=== PATIENT | male | born 1945 | race Caucasian/White ===

== ENCOUNTER 2016-11-25 10:26 | Inpatient (IN) | payer MEDICARE ==
[~2016-11-25] VITALS: Ht 177.8 cm; Wt 127.0 kg
--- NOTE | ~2016-11-25 | CO ---
Unit #: [id number] #: [id number] Patient: MARCO ANTONIO GARCIA JR [id number] [facility] [address] [place] [address]. [place], [place] [address] [id number] I MR#: [id number] NAME: MARCO ANTONIO GARCIA ROOM: 473 Age: 71 Sex: M Admission Date: 11/25/2016 : 1945 Attending Physician: Kevin Peng M.D. Primary Care Physician: Vance Muniz Consultation Date: 12/05/2016 CONSULTATION REPORT REASON FOR CONSULTATION Depression, anxiety, trouble sleeping. HISTORY OF PRESENT ILLNESS Mr. Odell is a 71-year-old morbidly obese, white male, seen in room 473, bed 1 on 12/05/2016 at [facility]. The patient was sitting somewhat uncomfortably in chair, dressed casually, has a bandage on his right leg. The patient reported that he is frustrated as having difficulty with day-to-day function such as transfer, taking care of himself. The patient reports that he takes medication for depression and for sleep and anxiety. The patient reported feeling sad, depressed, lately. Denied any suicidal or homicidal ideation. Denied any psychotic symptom. The patient reports lives at home with his . Marco Antonio's vital signs are stable; temperature 98.5, heart rate 73, respiratory rate 18, blood pressure 132/54, and oxygen saturation 95%. PAST PSYCHIATRIC HISTORY Remarkable for history of depression and anxiety. The patient is currently on medication. No history of any suicide attempt or any inpatient treatment. MEDICAL HISTORY History of osteoarthritis of knee, bradycardia, hypertension, diabetes, complete heart block, chronic obstructive pulmonary disease, history of decubitus ulcer on right leg. MEDICATIONS The patient is currently on Cardizem CD, furosemide, Wellbutrin 100 mg b.i.d., Desyrel 50 mg q.h.s. p.r.n. for sleep, Zestril, Lotrimin cream, Dulera, [place] spray, hydrocortisone cream, MiraLax, Colace, Levaquin, Percocet, Amaryl, Combivent, Dilaudid injection, diphenhydramine, Protonix, , Ativan p.r.n. FAMILY HISTORY AND SOCIAL HISTORY The patient reports he lives at home with his , good support system. No history of abuse. No history of any substance abuse. REVIEW OF SYSTEMS Complete review of systems is remarkable for as mentioned above. MENTAL STATUS EXAMINATION Vital signs, please see above. General appearance; the patient moderately obese, dressed casually, sitting somewhat uncomfortably in chair, seems to be in pain. Attention span and concentration, poor. Speech, regular rate Unit #: [id number] #: [id number] Patient: RADHA RILEY,MARCO ANTONIO RENDON and coherent. Oriented in time, place, and person. Mood and affect were sad, dysphoric, labile. Thought process, coherent. Thought content, the patient denied any thoughts of harming self or others, but sad, depressed. Denied any hallucination. Recent and remote memory, fair. Language, intact. Fund of knowledge, fair. Insight and judgment, fair to slightly impaired. DIAGNOSES Psychiatric: Major depressive disorder, recurrent, severe, F33.2; anxiety disorder, not otherwise specified, F40.01. Secondary diagnosis: Deferred. Medical diagnosis: Please refer to H and P. Stressors: Psychosocial stressors. ASSESSMENT/PLAN 1. Supportive psychotherapy and psychoeducation provided to the patient. 2. Educated about benefits and side effects of medication and course and prognosis of illness. 3. Advised to continue with p.r.n. Ativan and trazodone. I advised to change Wellbutrin to 100 mg in the morning and 100 mg in the afternoon, advised Celexa 20 mg daily for depressive symptom. If needed, consider further adjustment of medication. Please feel free to call if any questions, telephone #[phone]. Dictated by... Kip Rodriguez M.D. ARMIDA/ambrose TD: 12/05/2016 23:56 JOB #: [id number] CONSULTATION REPORT Page 1 of 1 X Kip Rodriguez MD X CONSULTATION REPORT
--- NOTE | ~2016-11-25 | CO ---
Unit #: [id number] #: [id number] Patient: MARCO ANTONIO GARCIA JR [id number] [address] [place], [place] [address] [id number] I MR#: [id number] NAME: MARCO ANTONIO GARCIA ROOM: [facility] Age: 71 Sex: M Admission Date: 11/25/2016 : 1945 Attending Physician: Kevin Peng M.D. Primary Care Physician: Vance Muniz Consultation Date: 12/03/2016 CONSULTATION REPORT REASON FOR CONSULTATION Renal insufficiency. Thank you very much for asking me to see this patient in consultation HISTORY OF PRESENT ILLNESS Mr. Garcia is a 71-year-old male, who presented to the hospital here on 11/25/2016 for right foot infection, status post debridement at that time. He subsequently underwent resurgery yesterday for second debridement again. The patient was noted upon admission to have a creatinine of 1.3, it went down to 1.1, and up to 1.7 yesterday. At which time, we were consulted, although it was not called in and it looks like it was called in and taken off earlier this morning. The patient's creatinine was down to 1.4 today. He states he has not really seen a kidney doctor as an outpatient. I did see him back in 2010, where he had acute renal failure, but his creatinine improved down to 1.0, at that time, it was related to ATN. His creatinine over the last 4 years to 5 years has ranged between anywhere from 1.1 to 1.2 from 2011 to 2013, and of course, 1.3 upon admission. He states he has some chronic shortness of breath over the last 2 months, occasional swelling. He also takes Aleve at home about at least one a day. Along with his other medications, he says he has had intermittently has some increased swelling of his right foot for a while. He denies any chest pain, any nausea or vomiting, any urinary symptoms. PAST MEDICAL HISTORY History of diabetes mellitus, history of hypertension, history of peripheral vascular disease, he actually had a bone removed secondary to osteo in 2010 of his right I think lateral part of his foot, he has a history of panic disorder, history of anemia with an upper GI bleed in the past in 2010, history of obesity, history of atrial fib on Eliquis, history of bradycardia and status post pacemaker, history of questionable COPD, questionable obstructive sleep apnea. ALLERGIES Include penicillin. SOCIAL HISTORY He drinks about two 16 ounce beers a day and a shot of other alcohol a day he states. He is a previous smoker, none in many years. MEDICATIONS Zestril here started today 10 mg a day, hydrocodone, Colace, Levaquin, Amaryl, Protonix, vancomycin, as well as Wellbutrin. His medicines at Unit #: [id number] #: [id number] Patient: MARCO ANTONIO GARCIA JR home included Lasix 40 mg b.i.d., Amaryl, Eliquis, lorazepam, Wellbutrin, Zestoretic, and Aleve daily most of the time. REVIEW OF SYSTEMS He denies any severe headaches, visual problems, or sinus problems. No cough or hemoptysis. No neck pain or neck stiffness. No chest pain, chest heaviness, or palpitations. Again, no severe abdominal pain, nausea, vomiting, or diarrhea. Rest of his review of systems as mentioned in the HPI. PHYSICAL EXAMINATION VITAL SIGNS: His T-max is 99.3, pulse 69 to 74, blood pressure is 128 to 152 over 40s to 70s. HEENT: He is normocephalic and atraumatic. Pupils are equal, round, and reactive to light. Extraocular muscles are intact. Hearing appears to be normal. Mouth is clear. No erythema. No exudate. NECK: Supple. No JVD. CARDIAC: He appears to have a regular rhythm without a rub. No S3 or S4 currently. LUNGS: His lung sounds fairly clear bilaterally. No wheezes, rhonchi, or rales. ABDOMEN: Overweight, bowel sounds positive, nontender, soft. EXTREMITIES: He does have bilateral lower extremity swelling mild as well as some mild thigh edema. His right foot is dressed. NEURO: He appears to be intact motor and sensory grossly. : Deferred. DIAGNOSTIC STUDIES LABORATORY RESULTS: Today shows sodium of 137, potassium 4.4, chloride is 107, bicarb is 23, BUN and creatinine 41 and 1.4. Glucose 253. Calcium is 8.1, albumin is 2.7. His previous creatinine is as mentioned above. His hemoglobin is 8.3 and has required several transfusions here, his white count 7300, platelets 316,000. His UA upon admission showed specific gravity of 1.01, trace protein, no rbc's, no wbc's. ASSESSMENT AND PLAN 1. Acute on probably mild chronic kidney disease, stage 3. His urine was fairly benign except for some trace protein. We will go ahead and do a random protein to creatinine ratio. We will check serum protein immunofixation. We will also check renal ultrasound to rule out obstruction or other gross abnormalities. He was intermittently on Aleve too and recommend stopping that and staying away from nonsteroidals for now. He was also just started on an LES inhibitor again here, we will see where his kidney function goes. He was also apparently given intermittent vancomycin. Certainly if it is continued and his renal functions worsen again, then we may need to consider change that to a different agent. Also, I do not see that he has had any contrast dye or any contrast dye ordered, but certainly if needed we would recommend mild hydration and other high-dose HMG CoA-reductase inhibitors, holding his Zestril, etc. He is also on some IV fluids right now and he has some mild increase edema, we will stop that as well, but hold diuretics. We will follow. 2. Right foot infection, status post debridement x2. 3. Hypertension. Again, the patient was started on LES inhibitor again today. We will follow him. He does have a history of hyperkalemia in the past, but it sounds like when he was . 4. Diabetes mellitus with increased glucose. 5. Questionable obstructive sleep apnea. 6. Anemia. He is on a proton pump inhibitor which is associated with Unit #: [id number] #: [id number] Patient: RADHA MARCO ANTONIO RILEY possible renal insufficiency and some poorly noncontrolled studies retrospective analysis. Although, ideally I recommend staying off PPIs until further studies have been done but since he has had a history of gastrointestinal bleed in the past and he has decreasing intermittently hemoglobin now, we will keep him on his PPI for now. Dictated byJuana Noel M.D. KAN/ambrose TD: 12/04/2016 04:40 JOB #: [id number] CONSULTATION REPORT Page 1 of 1 X Alli Noel MD CONSULTATION REPORT
--- NOTE | ~2016-11-25 | A ---
[facility] Nutrition Therapy DATE: 11/26/16 Patient: MARCO ANTONIO GARCIA JR Physician: NEELAM Address: [facility] Room/Bed: [address] [place] [address], Zip: [place] [address] Admit Date: 11/25/16 Date of : 43 Height: 5 10 Weight: 280 [phone] NUTRITIONAL ASSESSMENT: REASON: High BMI and Consult re: DM diet education 71 y/o male admitted for ulcer PMH: DM, HTN, Afib, COPD Anthropometrics: ht: 5'10" wt: 280# (127 kg) BMI: 40 Labs: Na+ 134, Glu 133, Accuchecks 145-228, BUN 30, Ca++ 8.3, Alb 3.0, HgbA1c 7.7 Meds: protonix, novolog, NaCl, furosemide Skin Integrity: Ulcer RT leg Diet: Consistent Carbohydrate Assessment: Chart reviewed, events noted. Pt seen for consult re: DM diet education. RD international tax manager visited pt at bedside. Pt reports eating "whatever he wants" at home and having a fixed income, not being able to spend a lot of money on food. RD international tax manager provided written and verbal education on carbohydrate counting and provided examples of healthy foods for heart health and weight loss. Pt had no questions at this time. RD will remain available. Intervention: 1. Diet education 2. Consistent carbohydrate diet Recommendations: 1. Add healthy heart diet to current consistent carbohydrate diet to promote gradual weight loss towards a healthy BMI. 2. Compliance with consistent carbohydrate and healthy heart diet upon d/c. 3. Patient would benefit from following up with and outpatient dietitian for assistance with diabetes management and weight loss. Respectfully, SOCRATES MOORE, cis[employer] certified internetwork expert Roslyn Ashraf MS, RD, LD [facility] Nutrition Therapy DATE: 11/26/16 Patient: MARCO ANTONIO GARCIA JR Physician: NEELAM Address: [address] [place] [address] Room/Bed: [address] [place] [address], Zip: [place] [address] Admit Date: 11/25/16 Date of : [birth year] Height: 5 10 Weight: 280 [phone] Food and Nutritional Services [facility] cc: client file
--- NOTE | ~2016-11-25 | US77 ---
[facility] A Service of [facility] & [facility] RADIOLOGY TEXT RESULTS PATIENT: MARCO ANTONIO GARCIA JR LOCATION: [facility] 473-01 : 43 UNIT #: [id number] AGE: [address]: Kevin Peng MD SEX: M ORDER DR: [id number] [facility] [address] [place], [place] [address] [id number] I MR#: [id number] Acc #: [id number] NAME: MARCO ANTONIO GARCIA : 1945 SEX: M STUDY DATE/TIME: 12/03/2016 22:22 UNIT: [facility] ROOM: [facility] STUDY DESCRIPTION: US Kidney Bilateral Complete Attending Physician: Kevin Peng M.D. Referring Physician: Kevin Peng M.D. Ordering Physician: Nelson Noel M.D. Primary Care Physician: Vance Mendez [facility] MEDICAL IMAGING REPORT This report is preliminary unless electronic signature is present EXAM Bilateral renal ultrasound, 12/03/2016. HISTORY 71-year-old male with elevated BUN and creatinine. Abnormal renal function exam. BUN 41, creatinine 1.4, GFR 49.5. COMPARISON None. FINDINGS Real time castellanos-scale and color Doppler imaging of the kidneys and urinary bladder was performed. Examination is slightly limited by body habitus. Both kidneys appear normal in size and contour. The right kidney measures 15.3 cm in length. The left kidney measures 11.7 cm in length. Cortical thickness and echogenicity are grossly preserved. There is a small simple-appearing cyst in the mid pole of the right kidney measuring 2.2 x 1.2 x 2 cm. No solid or cystic left renal masses. No solid right renal masses. No hydronephrosis in either kidney. No abnormal calcifications. Urinary bladder appears unremarkable. The prevoid bladder volume 160.5 cubic cm. IMPRESSION Small simple-appearing right renal cyst. Otherwise, unremarkable renal ultrasound. Dictated by... Deepak Verdugo M.D. THIS IS AN ELECTRONICALLY VERIFIED REPORT Deepak Verdugo M.D. at 12/04/2016 4:04 PM SEBASTIAN/ian [facility] A Service of [facility] & [facility] / [facility] RADIOLOGY TEXT RESULTS PATIENT: MARCO ANTONIO GARCIA JR LOCATION: [facility] 473-01 : [birth year] UNIT #: [id number] AGE: [address]: Kevin Peng MD SEX: M ORDER DR: TD: 12/04/2016 08:07 JOB #: [id number] MEDICAL IMAGING REPORT Page 1 of 1 COPY
--- NOTE | ~2016-11-25 | CO ---
Unit #: [id number] #: [id number] Patient: MARCO ANTONIO GARCIA JR [id number] [address] [place], [place] [address] [id number] MR#: [id number] NAME: MARCO ANTONIO GARCIA JR ROOM: [facility] Age: 71 Sex: M Admission Date: 11/25/2016 : 1945 Attending Physician: Kevin Peng M.D. Primary Care Physician: Vance Muniz Consultation Date: 11/25/2016 CONSULTATION REPORT REASON FOR CONSULTATION Medical management. HISTORY OF PRESENT ILLNESS The patient is a 71-year-old male, fairly poor historian, with a very flat affect who apparently was directly transferred from his surgeon's office secondary to need for debridement of a lower extremity venous stasis ulcer. We were asked to evaluate the patient in regard to his prior history of hypertension, pacemaker placement, anticoagulation, as well as diabetes history. He himself is a fairly poor historian. He is unable to tell me the name of his psych specialist. After a very long time, he was able to tell me the name of his family practitioner, and even then, he was not sure. He states he has been taking his regular medications as prescribed, and despite instructions from surgery, his wound ulcer has not been able to heal. He is not entirely sure he wants to proceed with surgery. He is afraid he might lose his lower extremity altogether. He currently has no family members present at bedside. He, otherwise, denies any other complaints. He denies any chest pain, shortness of breath, headaches. He states he, otherwise, feels well. PAST MEDICAL HISTORY 1. Severe morbid obesity. 2. Hypertension. 3. Pacemaker placement secondary to cardiac arrhythmia. Patient unable to tell me why. 4. Prior history of peptic ulcer disease. 5. Chronic constipation issues. 6. Diabetes type 2. 7. Prior history of glaucoma. 8. Cataract surgery. 9. Arthritis. HOME MEDICATIONS Lasix, Amaryl, Eliquis, Ativan, Wellbutrin, eyedrops, Zestoretic 20/12.5. ALLERGIES Penicillin. REVIEW OF SYSTEMS Please see HPI. Limited secondary to the patient's poor ability to verify details. Unit #: [id number] #: [id number] Patient: MARCO ANTONIO GARCIA JR FAMILY HISTORY Reviewed. Noncontributory. Not pertinent given advanced age. SOCIAL HISTORY The patient resides at home. No alcohol. No tobacco. No illicit drug use. He states in the past he used to drink a heavy amount of alcohol but currently he only does it socially. PHYSICAL EXAMINATION VITAL SIGNS: Temperature 98.1, pulse 70, respiratory rate 18, blood pressure 166/68. GENERAL APPEARANCE: The patient is a morbidly obese 71-year-old male lying comfortably, no acute distress. HEAD EXAM: Atraumatic, normocephalic. NECK: Supple. No accessory muscle use noted. CVS EXAM: S1, S2. Tachycardic. Pacemaker placement is noted on chest wall. RESPIRATORY EXAM: Diminished anterior auscultation bilaterally. GI/ABDOMEN: Distention noted. Nontender. LOWER EXTREMITY EXAM: Bilateral lower extremities are noted. Left is dressed. As well, the right appears to be in a compression stocking. There is no calf tenderness noted. NEUROLOGIC EXAM: The patient is alert and oriented x3 with no evidence of any focal nerve deficits. DIAGNOSTIC STUDIES LABS: Labs at time of admission include a CMP showing creatinine of 1.3, glucose 171. INR of 1. CBC shows a hemoglobin of 9. Blood glucose Accu-Cheks was 156. INITIAL IMPRESSION 1. Type 2 diabetes. 2. Severe morbid obesity. 3. Prior history of pacemaker placement. Details unclear. 4. Hypertension. 5. Prior history of peptic ulcer disease. 6. Osteoarthritis. 7. Likely restrictive lung disease secondary to morbid obesity. 8. Likely obstructive sleep apnea. 9. Venous stasis ulcer. 10. Generalized anxiety. 11. Likely underlying cognitive impairment. PLAN As per [facility]. Cardiology service will also be consulted secondary to the patient being on chronic anticoagulation. He likely needs at least 24 hours off of Eliquis. He has already taken a dose this morning. Cardiology will see and evaluate the patient later this afternoon. His other home medications will be reviewed. Accu-Cheks will be ascertained a.c. and h.s. NovoLog low dose sliding scale will be initiated. Routine laboratory studies to follow. Pulmonary consultation may be considered, as well, for preoperative management secondary to his severe morbid obesity. He likely is at moderate but acceptable risk for surgery from our standpoint, but he does require cardiology and likely pulmonary consultation prior to any form of general anesthesia. Unit #: [id number] #: [id number] Patient: MARCO ANTONIO GARCIA JR JUSTICE Dictated by... Sina Morataya/sylvia TD: 11/25/2016 14:48 JOB #: [id number] CONSULTATION REPORT Page 1 of 1 X Karla Meza MD X CONSULTATION REPORT
--- NOTE | ~2016-11-25 | EKG ---
PATIENT: MARCO ANTONIO GARCIA UNIT #: [id number] Ventricular Rate: 70 BPM Atrial Rate: 70 BPM QRS Duration: 196 ms Q-T Interval: 498 ms QTC Calculation(Bezet): 537 ms Calculated R Garrett: -108 degrees Calculated T Garrett: 57 degrees Diagnosis Line: AV sequential or dual chamber electronic pacemaker Diagnosis Line: Abnormal ECG Diagnosis Line: When compared with ECG of 26-NOV-2016 06:47, Diagnosis Line: Wide QRS rhythm has replaced Electronic Diagnosis Line: ventricular pacemaker Diagnosis Line: Confirmed by ALBINO LAI MD ([id number]) on 11/28/2016 Diagnosis Line: 5:42:39 PM INTERPRETING MD: MING MILES
--- NOTE | ~2016-11-25 | EKG ---
PATIENT: MARCO ANTONIO GARCIA UNIT #: [id number] Ventricular Rate: 70 BPM Atrial Rate: 70 BPM P-R Interval: 174 ms QRS Duration: 194 ms Q-T Interval: 488 ms QTC Calculation(Bezet): 527 ms P [place]: 78 degrees Calculated R [place]: -99 degrees Calculated T [place]: 72 degrees Diagnosis Line: AV sequential or dual chamber electronic pacemaker Diagnosis Line: When compared with ECG of 25-NOV-2016 13:00, Diagnosis Line: (unconfirmed) Diagnosis Line: Electronic ventricular pacemaker has replaced Diagnosis Line: Electronic atrial pacemaker Diagnosis Line: Confirmed by DEE DEE MATTHEWS MD ([id number]) on Diagnosis Line: 11/27/2016 10:34:41 AM INTERPRETING MD: BYRON MILES
--- NOTE | ~2016-11-25 | TOC ---
Unit #: [id number] #: [id number] Patient: MARCO ANTONIO GARCIA JR [id number] [address] [place], [place] [address] [id number] I MR#: [id number] NAME: MARCO ANTONIO GARCIA ROOM: [facility] Age: 71 Sex: M Admission Date: 11/25/2016 : 1945 Attending Physician: Kevin Peng M.D. Referring Physician: Kevin Peng M.D. Primary Care Physician: Vance Muniz TRANSFER OF CARE SUMMARY ADMITTING AND FINAL DIAGNOSIS Non-healing wound of the right lower leg. SECONDARY DIAGNOSES 1. Chronic anemia 2. Exogenous obesity 3. Chronic venous stasis disease BRIEF SUMMARY This is a 71-year-old white male that has been followed by Dr. Peng for a non-healing wound of the right lower leg which was felt to be related to his chronic venous stasis disease. The patient had had multiple attempts at debridements with no success and was brought in at this time for extensive debridement of his wound to try to get granulation enough to skin graft his wound. On 11/27/2016, the patient underwent initial debridement of his wound and this was followed up with another debridement five days later on the 02 of December. Postop the patient has done well except for having some psych issues and was seen in consultation by Dr. Rodriguez and now is doing better with a little less depression. His wound is clean with no further necrosis, but no significant granulation. Presently, he is having a Santyl put on the wound along with [id number] dressings. He did develop some edema of the left lower leg, which has improved with elevation. He has taken fairly significant amounts of IV pain medications while in the hospital. Plan will be to transfer him to the rehab SNU facility here at [facility] for further convalescence and follow up. His home medications will be continued and his pain medicine as well as local wound care. Dictated by... Pankaj Mckee Jr., M.D. NAN/laurent TD: 12/09/2016 16:04 JOB #: [id number] Unit #: [id number] #: [id number] Patient: MARCO ANTONIO GARCIA JR TRANSFER OF CARE SUMMARY Page 1 of 1 X aPnkaj Mckee MD X TRANSFER OF CARE SUMMARY
--- NOTE | ~2016-11-25 | HP ---
Unit #: [id number] #: [id number] Patient: MARCO ANTONIO GARCIA JR [id number] [address] [place], [place] [address] [id number] I MR#: [id number] NAME: MARCO ANTONIO GARCIA JR ROOM: [facility] Age: 71 Sex: M Admission Date: 11/25/2016 : 1945 Attending Physician: Kevin Peng M.D. Referring Physician: Kevin Peng M.D. Primary Care Physician: Vance Muniz HISTORY AND PHYSICAL HISTORY OF PRESENT ILLNESS Mr. Garcia is a 71-year-old white male with a past medical history of hypertension, morbid obesity, diabetes, atrial fibrillation and flutter, who is on Eliquis. He is noted to have enlarging right leg infected venous stasis ulcers with areas of necrosis. It is uncontrollable as an outpatient. He is admitted for cardiac and pulmonary clearance as well as diabetic evaluation. He is also admitted to have this debrided in the operating room in order to try to get control of this wound bed situation. He is also on anticoagulation which has to be reversed. PAST MEDICAL HISTORY See notes in chart. This would include notes from pulmonary and cardiology. His other medical illnesses include 1. Osteoarthritis of the knees. 2. Bradycardia. 3. Hypertension. 4. Diabetes. 5. Complete heart block. 6. Chronic obstructive pulmonary disease secondary to smoking. He is not smoking at present. 7. He is retired, disabled and a nondrinker. 8. The diagnosis on the chart of a decubitus ulcer of his right leg is not correct. The area over his right leg is a complicated large stasis ulcer secondary to on venous and insufficiency and lymphedema. ALLERGIES Penicillin. PHYSICAL EXAMINATION GENERAL: Cooperative, alert white male. He is in no acte distress. HEENT: Clear. There is no jaundice. Pupils equal and reactive to light and accommodation. CHEST: Relatively clear to auscultation and percussion. HEART: Heart rate is irregular, as documented per cardiology. ABDOMEN: Soft and nontender. No masses. No peritoneal signs. EXTREMITIES: Limited range of motion. The patient is in the bed at present. Right leg edema is noted, but control is slightly improved. The ulcer over the right leg, which is a stasis ulcer, is fairly large with areas of necrotic tissue. He does have 2+ palpable pulses. ASSESSMENT/PLAN This patient needs to have this debrided in the operating room. The risks have been explained to the patient and he understands. Unit #: [id number] #: [id number] Patient: MARCO ANTONIO GARCIA JR Dictated by Kevin Peng M.D. RDM/gz TD: 11/26/2016 08:48 JOB #: [id number] HISTORY AND PHYSICAL Page 1 of 1 X Kevin Peng MD X HISTORY AND PHYSICAL
--- NOTE | ~2016-11-25 | EKG ---
PATIENT: MARCO ANTONIO GARCIA UNIT #: [id number] Ventricular Rate: 72 BPM Atrial Rate: 72 BPM P-R Interval: 160 ms QRS Duration: 204 ms Q-T Interval: 506 ms QTC Calculation(Bezet): 554 ms P [place]: 18 degrees Calculated R [place]: -98 degrees Calculated T [place]: 64 degrees Diagnosis Line: Electronic atrial pacemaker Diagnosis Line: Right bundle branch block Diagnosis Line: Possible Lateral infarct , age undetermined Diagnosis Line: Abnormal ECG Diagnosis Line: When compared with ECG of 05-DEC-2010 07:08, Diagnosis Line: Electronic atrial pacemaker has replaced Atrial Diagnosis Line: flutter Diagnosis Line: Diagnosis Line: Borderline criteria for Lateral infarct are now Diagnosis Line: Present Diagnosis Line: Confirmed by EDWARD MATTHEWS MD[facility]OSPITAL[facility]ELLE ([id number]) on Diagnosis Line: 11/27/2016 10:30:14 AM INTERPRETING MD: BYRON MILES
--- NOTE | ~2016-11-25 | CO ---
Unit #: [id number] #: [id number] Patient: MARCO ANTONIO GARCIA JR [id number] [facility]. [place], [place] [address] [id number] I MR#: [id number] NAME: MARCO ANTONIO GARCIA ROOM: 473 Age: 71 Sex: M Admission Date: 11/25/2016 : 1945 Attending Physician: Kevin Peng M.D. Primary Care Physician: Vance Muniz Consultation Date: 12/09/2016 CONSULTATION REPORT REASON FOR CONSULTATION Followup. HISTORY OF PRESENT ILLNESS Mr. Odell is a 71-year-old male, seen on 12/09/2016, in room 472, bed 1, at [facility]. The patient was lying comfortably, reports medication is helping him, decrease in anxiety/depression, denied any thoughts of harming self or others. The patient reports sleeping good. The patient's vital signs, 97.8, 68, 22, and 103/64, oxygen saturation 94%. MENTAL STATUS EXAMINATION General appearance, moderately obese lying comfortably in bed, dressed casually. Attention span and concentration, fair. Speech, regular rate. Oriented to time, place, and person. Mood and affect, sad and dysphoric. Thought process, coherent. Thought content, the patient denied any thoughts of harming self or others. Recent and remote memory, fair. Language, intact. Fund of knowledge, fair. Insight and judgment, fair to slightly impaired. DIAGNOSIS Major depressive disorder, recurrent, severe, F33.2. ASSESSMENT/PLAN 1. Supportive psychotherapy, psychoeducation provided to the patient. 2. Educated about benefits and side effects of medication, and course and prognosis of illness. 3. Advised to continue with the current medication, if needed consider further adjustment of medication. 4. Please feel free to call if any questions, telephone number, . Dictated by... Kip Rodriguez M.D. ARMIDA/michael TD: 12/10/2016 09:00 JOB #: [id number] Unit #: [id number] #: [id number] Patient: MARCO ANTONIO GARCIA JR CONSULTATION REPORT Page 1 of 1 X Kip Rodriguez MD CONSULTATION REPORT
--- NOTE | ~2016-11-25 | CR63 ---
[facility] A Service of [facility] & [facility] RADIOLOGY TEXT RESULTS PATIENT: MARCO ANTONIO GARCIA JR LOCATION: [facility] 473-01 : 43 UNIT #: [id number] AGE: [address]: Kevin Peng MD SEX: M ORDER DR: [id number] [facility] [address] [place], [place] [address] [id number] I MR#: [id number] #: [id number] NAME: MARCO ANTONIO GARCIA JR : 1945 SEX: M STUDY DATE/TIME: 11/25/2016 17:59 UNIT: [facility] ROOM: [facility] STUDY DESCRIPTION: CR Chest 2 View Attending Physician: Kevin Peng M.D. Referring Physician: Kevin Peng M.D. Ordering Physician: Delfino Maldonado M.D. Primary Care Physician: Vance Mendez [facility] MEDICAL IMAGING REPORT This report is preliminary unless electronic signature is present EXAM Two-view chest, 11/25/2016 INDICATIONS Shortness of air today. TECHNIQUE Two-view chest compared with 11/25/2010. FINDINGS Dual-lead left sided pacemaker present. One lead is at the right atrial level and the second tracks toward the right ventricle but is not included in the field of view on either projection. There has been removal of a right-sided PICC line. The heart is enlarged but stable, lung volumes are low and there is bronchovascular crowding. There is old, healed granulomatous disease. No dense consolidation, effusion or pneumothorax. There is thoracic spondylosis. Lateral view degraded by motion. IMPRESSION 1. Cardiomegaly with low lung volumes and bronchovascular crowding but no effusion or dense consolidation. 2. Interval placement of a dual-lead pacemaker in position as described. Dictated by... Wu Edward M.D. THIS IS AN ELECTRONICALLY VERIFIED REPORT Wu Edward M.D. at 11/26/2016 11:29 AM JOHNNY/rupesh TD: 11/25/2016 23:55 JOB #: [id number] [facility] A Service of [facility] & [facility] RADIOLOGY TEXT RESULTS PATIENT: MARCO ANTONIO GARCIA JR LOCATION: [facility] 473-01 : 43 UNIT #: [id number] AGE: [address]: Kevin Peng MD SEX: M ORDER DR: MEDICAL IMAGING REPORT Page 1 of 1 COPY
--- NOTE | ~2016-11-25 | US136 ---
[facility] A Service of [facility] & [facility] RADIOLOGY TEXT RESULTS PATIENT: MARCO ANTONIO GARCIA JR LOCATION: [facility] 473-01 : 43 UNIT #: [id number] AGE: [address]: Kevin Peng MD SEX: M ORDER DR: [id number] [facility] [address] [place], [place] [address] [id number] I MR#: [id number] Acc #: [id number] NAME: MARCO ANTONIO GARCIA JR : 1945 SEX: M STUDY DATE/TIME: 12/01/2016 7:06 UNIT: [facility] ROOM: [facility] STUDY DESCRIPTION: US U/L Ext Art Study Ltd Bilat Attending Physician: Kevin Peng M.D. Referring Physician: Kevin Peng M.D. Ordering Physician: Kevin Peng M.D. Primary Care Physician[facility] REPORT This report is preliminary unless electronic signature is present EXAM Ankle-brachial indices HISTORY Cellulitis. FINDINGS Pulse volume recordings are normal at the ankle levels bilaterally. Velocity waveforms are biphasic on the right and triphasic on the left. Right brachial pressure is 157, left brachial pressure is 140. On the right side, dorsalis pedis is 143, posterior tibial is 133, great toe is 42 for a right ankle-brachial index of 1.02. On the left side, posterior tibial pressure is 194, dorsalis pedis 164, great toe is 59 for a left ankle-brachial index of 1.39. IMPRESSION 1. Normal perfusion is seen in the right lower extremity, with ankle-brachial index of 1.02. Waveforms are biphasic and mild peripheral vascular disease cannot be excluded. 2. On the left side, ankle-brachial index is normal at 1.3. Waveforms are normal. 3. Small vessel disease is seen in the feet bilaterally. Dictated by... Anson Rome M.D. THIS IS AN ELECTRONICALLY VERIFIED REPORT Anson Rome M.D. at 12/02/2016 7:14 AM /psc TD: 12/01/2016 20:51 [facility] A Service of [facility] & [facility] RADIOLOGY TEXT RESULTS PATIENT: MARCO ANTONIO GARCIA JR LOCATION: [facility] 473-01 : 43 UNIT #: [id number] AGE: [address]: Kevin Peng MD SEX: M ORDER DR: JOB #: [id number] MEDICAL IMAGING REPORT Page 1 of 1 COPY
--- NOTE | ~2016-11-25 | OR ---
Unit #: [id number] #: [id number] Patient: MARCO ANTONIO GARCIA JR [id number] [address] [place], [place] [address] [id number] I MR#: [id number] NAME: MARCO ANTONIO GARCIA JR ROOM: 473 Date of Procedure: 11/27/2016 Admission Date: 11/25/2016 Surgeon: Pankaj Mckee Jr., M.D. : 1945 Attending Physician: Kevin Peng M.D. Referring Physician: Kevin Peng M.D. Primary Care Physician: Vance Muniz OPERATIVE REPORT INDICATIONS FOR PROCEDURE The patient is a 71-year-old white male with severe bilateral venous stasis disease and ulcers. He has a nonhealing ulcer that he has had for years of the right lower leg. This continues to not granulate and not support significant healing. It was felt that this needed to be extensively debrided with a #10-blade scalpel down to viable tissue that may granulate. He is brought to the operating room at this time for this procedure. He understands the procedure including the risks, including that of loss of more tissue and continued nonhealing of the ulcer and consents. PREOPERATIVE DIAGNOSIS Nonhealing ulcer of the right lower leg with chronic venous stasis disease. POSTOPERATIVE DIAGNOSIS Nonhealing ulcer of the right lower leg with chronic venous stasis disease noting multiple areas of deeper ulceration and necrosis with the wound was almost circumferential. The wound itself measured approximately 13 x 20 cm. ANESTHESIA General with LMA. PROCEDURE PERFORMED Sharp excisional debridement using a #10-blade scalpel to the wound of the right lower leg. This was down to the dermis and some areas slightly into the subcu. DESCRIPTION OF PROCEDURE The patient was positioned in supine position. After being anesthetized, he was prepped and draped in routine fashion for debridement of the wound of his right lower leg. Using a #10-blade scalpel, extensive debridement was performed, mostly down into the dermis but some down below the dermis into the some subcu tissue. All necrotic tissue was removed that could be detected and after this was done the wound was then debrided with saline moist sponge with vigorous rubbing. After all additional skin and epidermis was removed. The wound was packed with saline moist dry dressings. Sterile dressings were applied externally. Estimated blood loss less than 100 mL. The patient received less than 1000 mL crystalloid solution during the procedure. Sponges and instrument counts were correct x3. No drains used. No complications. The patient was taken to the recovery room with stable vital signs in satisfactory condition. Unit #: [id number] #: [id number] Patient: MARCO ANTONIO GARCIA JR Dictated by... Pankaj Mckee Jr., MSuleman [place]/ambrose TD: 11/28/2016 06:53 JOB #: [id number] OPERATIVE REPORT Page 1 of 1 X Pankaj Mckee MD X PROCEDURE OPERATIVE NOTE
--- NOTE | ~2016-11-25 | EKG ---
PATIENT: MARCO ANTONIO GARCIA UNIT #: [id number] Ventricular Rate: 70 BPM Atrial Rate: 36 BPM QRS Duration: 114 ms Q-T Interval: 400 ms QTC Calculation(Bezet): 432 ms Calculated R [place]: -98 degrees Calculated T [place]: 166 degrees Diagnosis Line: Demand pacemaker; interpretation is based on Diagnosis Line: intrinsic rhythm Diagnosis Line: Diagnosis Line: Consider right ventricular involvement in acute Diagnosis Line: inferior infarct Diagnosis Line: Abnormal ECG Diagnosis Line: When compared with ECG of 28-NOV-2016 05:44, Diagnosis Line: Diagnosis Line: Confirmed by JYOTI ECHAVARRIA MD ([id number]) on Diagnosis Line: 12/01/2016 7:37:04 PM INTERPRETING MD: JERICHO MILES
--- NOTE | ~2016-11-25 | OR ---
Unit #: [id number] #: [id number] Patient: MARCO ANTONIO GARCIA JR [id number] [address] [place], [place] [address] [id number] I MR#: [id number] NAME: MARCO ANTONIO GARCIA JR ROOM: 473 Date of Procedure: 12/02/2016 Admission Date: 11/25/2016 Surgeon: Pankaj Mckee Jr., M.D. : 1945 Attending Physician: Kevin Peng M.D. Referring Physician: Kevin Peng M.D. Primary Care Physician: Vance Muniz OPERATIVE REPORT INDICATION FOR PROCEDURE The patient is a 71-year-old white male with a nonhealing wound of the right lower leg. This was debrided last week and continues to have fibrotic dermis that appears to be nonhealing and will not granulate. He is brought to the operating room at this time for more aggressive debridement using #10 blade scalpel with sharp excisional debridement down to below the dermis. The patient understands the procedure including the risks, including that of loss of limb, bleeding, infection, and continued nonhealing and consents. PREOPERATIVE DIAGNOSIS Nonhealing wound, right lower extremity. POSTOPERATIVE DIAGNOSIS Nonhealing wound, right lower extremity, noting thickened fibrotic dermis that appeared to be scar or possibly some fiber connective tissue disorder like scleroderma. ANESTHESIA General with LMA. PROCEDURE PERFORMED Sharp excisional debridement of the wound to the right lower leg. This was extensive using a #10 blade scalpel. DESCRIPTION OF PROCEDURE The patient was positioned in supine position. After being anesthetized, he was placed in left lateral decubitus position, prepped and draped in routine fashion for debridement of the wound of his right lower leg. Using #10 blade scalpel, the dermis was shaved down to the tissue below the dermis, which appeared to be some fascia of the muscle as well as muscle itself. There was no obvious connective tissue deep to the dermis suspicious for some form of fiber connective tissue disorder such as scleroderma. After the tissue was clean down to viable normal appearing tissue in most areas, hemostasis was achieved with Bovie cautery. The wound was irrigated and again after hemostasis was achieved, the wound was packed with saline moist dry dressings. Sterile dressings were applied externally. Estimated blood loss 150 to 200 mL. The patient received a total of approximately 1000 mL crystalloid solution during the procedure. Sponges and instruments counts were correct x3. No drains used. No complications. The patient was taken to the recovery room with stable vital signs in satisfactory condition. Unit #: [id number] #: [id number] Patient: MARCO ANTONIO GARCIA JR Dictated by... Pankaj Mckee Jr., M.Piter [place]/ambrose TD: 12/02/2016 20:51 JOB #: [id number] OPERATIVE REPORT Page 1 of 1 X Pankaj Mckee MD X PROCEDURE OPERATIVE NOTE
--- NOTE | ~2016-11-25 | US84 ---
[id number] [facility]. [facility] [address] [place], [place] [address] [id number] I MR#: [id number] Acc #: [id number] NAME: MARCO ANTONIO GARCIA JR : 1945 SEX: M STUDY DATE/TIME: 11/25/2016 18:11 UNIT: [facility] ROOM: [facility] STUDY DESCRIPTION: US LE Veins Complete Rex Stdy Attending Physician: Kevin Peng M.D. Referring Physician: Kevin Peng M.D. Ordering Physician: Delfino Maldonado M.D. Primary Care Physician: Vance Muniz MEDICAL IMAGING REPORT This report is preliminary unless electronic signature is present EXAM Bilateral lower extremity venous duplex, 11/25/2016 HISTORY Venous ulcer on right leg for 7 years, evaluate for deep vein thrombosis. FINDINGS Thorne-scale images of the lower extremities were obtained as well as Doppler waveform spectral analysis and color flow Doppler imaging. The exam is limited as the right posterior tibial vein and right peroneal vein were not visualized by the seating and mobility technologist. There is normal blood flow and compressibility in the bilateral common femoral veins, deep femoral veins, superficial femoral veins and popliteal veins and the anterior tibial veins bilaterally, as well as the left posterior tibial vein and peroneal vein. IMPRESSION Exam is limited, as the right posterior tibial vein and right peroneal vein were not visualized. There is no evidence of deep vein thrombosis within the visualized lower extremity deep veins. Dictated by... Kartik Pagan M.D. THIS IS AN ELECTRONICALLY VERIFIED REPORT Kartik Pagan M.D. at 11/26/2016 2:19 PM KRT/rupesh TD: 11/26/2016 00:23 JOB #: [id number] MEDICAL IMAGING REPORT Page 1 of 1 COPY
--- NOTE | ~2016-11-25 | CO ---
Unit #: [id number] #: [id number] Patient: MARCO ANTONIO GARCIA JR [id number] [address] [place], [place] [address] [id number] MR#: [id number] NAME: MARCO ANTONIO GARCIA JR ROOM: [facility] Age: 71 Sex: M Admission Date: 11/25/2016 : 1945 Attending Physician: Kevin Peng M.D. Consultation Date: 11/25/2016 CONSULTATION REPORT REASON FOR CONSULTATION Perioperative risk assessment, possible sleep apnea. HISTORY OF PRESENT ILLNESS A 71-year-old gentleman, who apparently has chronic leg wounds and has undergone multiple debridements. He apparently was admitted to the hospital for consideration of surgical debridement. We were asked to evaluate the patient because of his obesity, possible sleep apnea, and perioperative risk assessment. Initially, he declined any history of shortness of breath, but later in the interview, he said he did have dyspnea on exertion. He has no wheeze, cough, sputum production, or hemoptysis now. However, he has "bronchitis" 2 or 3 times a year. He is very vague with his symptoms. He has noticed a gradual increase in his dyspnea on exertion over the last 1 month. He does snore. He says he sleeps during the day. PAST MEDICAL HISTORY Remarkable for chronic wounds, hypertension, pacemaker implantation, peptic ulcer disease, diabetes. He denies any formerly diagnosed lung disease. MEDICATIONS At home are Lasix, Amaryl, Eliquis, Ativan, Wellbutrin, Zestoretic, Lumigan eyedrops, Cosopt eye drops, Alphagan eye drops. ALLERGIES Penicillin. SOCIAL HISTORY Quit smoking when he was young decades ago. FAMILY HISTORY No familial lung disease. REVIEW OF SYSTEMS Very poor historian. Again, initially denied almost everything, but then stated he had some dyspnea on exertion. No chest pain, palpitations, abdominal pain, melena, hematochezia, hematuria, dysuria, focal weakness, or paresthesias. He does have these chronic wounds. Further review of systems fairly unremarkable or as above. PHYSICAL EXAMINATION GENERAL: Reveals a patient, who is in no acute distress on room air. VITAL SIGNS: He is afebrile, pulse 70, respiratory rate is 18, blood Unit #: [id number] #: [id number] Patient: MARCO ANTONIO GARCIA JR pressure 166/68, 5 feet 10 inches, 264 pounds, BMI is 34. HEENT: Pupils equal, round, and reactive to light. Sclerae anicteric. Head atraumatic. NECK: Supple. No supraclavicular or cervical adenopathy appreciated. He has a Mallampati class II oropharynx. CHEST: No wheeze, stridor, or consolidation. CARDIAC: Reveals distant heart tones. Regular rate and rhythm. No definite pathologic murmur, rub, or gallop. ABDOMEN: Soft and nontender. No hepatomegaly or rebound. EXTREMITIES: Wrapped. There is a significant bilateral edema. NEUROLOGIC: Grossly intact. No focal motor or sensory deficits. SKIN: Warm and dry. DIAGNOSTIC STUDIES CARDIOVASCULAR STUDIES: EKG is paced. LABORATORY RESULTS: His BUN is 32, creatinine is 1.3. INR normal, but he is on Eliquis which has been stopped. White blood cell count is 10.3, hemoglobin is 9.0, platelet count 415. IMAGING STUDIES: No chest x-rays have been performed. He said that in the past chest x-rays have been "normal." IMPRESSION 1. Perioperative risk assessment. 2. Obesity, snoring likely obstructive sleep apnea. 3. Dyspnea on exertion, likely multifactorial. 4. History of heart disease. Suspect extensive details are unavailable. 5. Repeated episodes of "bronchitis" every year. Consider possible airways disease such as asthma. 6. Wound with potential debridement. 7. Medical problems listed above. PLAN Pulmonary hygiene has been discussed with the patient in great detail. I will check lower extremity venous Dopplers, PA, and lateral chest x-ray, and bedside spirometry. He will benefit from outpatient full PFTs. Further treatment based on results. Also, would consider outpatient nocturnal polysomnography. I have discussed with the patient the risks given his obesity and possible sleep apnea including hypoxemia, atelectasis, pneumonia etc. and he agrees to proceed from a pulmonary point of view if surgery is needed. Thank you very much for allowing me to participate in the care of Mr. Garcia. Dictated by... Delfino Maldonado M.D. [place]/ambrose TD: 11/26/2016 13:28 JOB #: [id number] Unit #: [id number] #: [id number] Patient: MARCO ANTONIO GARCIA JR CONSULTATION REPORT Page 1 of 1 X Delfino Maldonado MD CONSULTATION REPORT
--- NOTE | ~2016-11-25 | CO ---
Unit #: [id number] #: [id number] Patient: MARCO ANTONIO GARCIA JR [id number] [address] [place], [place] [address] [id number] I MR#: [id number] NAME: MARCO ANTONIO GARCIA JR ROOM: [facility] Age: 71 Sex: M Admission Date: 11/25/2016 : 1945 Attending Physician: Kevin Peng M.D. Requesting Physician: Kevin Peng M.D. Consultation Date: 11/25/2016 CONSULTATION REPORT REASON FOR CONSULT Surgical clearance. HISTORY OF PRESENT ILLNESS This is a pleasant 71-year-old morbidly obese male with a past medical history of hypertension, morbid obesity, diabetes mellitus, atrial fibrillation/flutter on chronic anticoagulation with Eliquis, permanent pacemaker possibly secondary to sick sinus syndrome, and chronic lower extremity wounds. The patient has been followed by Dr. Peng and was seen in his office today. He has been directly admitted for debridement of an infected right lower extremity venous stasis wound. We were asked to see the patient for preop surgical clearance. The patient denies any complaints of chest pain, tightness or pressure. He does report shortness of breath with ambulation. He states he gets extremely short of breath with climbing stairs, and his mobility is limited. He follows with a nurse practitioner and a physician at [facility], but he is unable to tell me the name of the physician. At present, there are no family members at the bedside. He is slightly anxious about his upcoming surgery and is concerned about losing his limb. An EKG was performed which shows atrial pacing, rate of 72 beats per minute. No acute ischemic changes noted. Pulmonary has been asked to see him as well. PAST MEDICAL HISTORY 1. Hypertension. 2. Atrial fibrillation/flutter on chronic anticoagulation with Eliquis. 3. Morbid obesity. 4. History of peptic ulcer disease. 5. Permanent pacemaker placement, unknown device. Patient is unsure of device. Reason it was placed may have been related to sick sinus syndrome versus heart block. 6. Diabetes mellitus type 2. 7. Arthritis. 8. Osteomyelitis. 9. Anxiety and depression. 10. Glaucoma. PAST SURGICAL HISTORY 1. Excision of his right foot fifth metatarsal and shaft with implantation of antibiotic beads. 2. Cataract surgery. FAMILY HISTORY Negative for any coronary artery disease. Unit #: [id number] #: [id number] Patient: MARCO ANTONIO GARCIA JR SOCIAL HISTORY The patient is . He lives with his . He is a reformed tobacco user, quit approximately 30 years ago. He denies illicit drugs. He does report alcohol use and states he drinks three to four beers daily. The patient uses a cane for ambulation purposes. ALLERGIES Penicillin. HOME MEDICATIONS 1. Lasix 40 mg p.o. b.i.d. 2. Amaryl 2 mg p.o. daily. 3. Eliquis 5 mg p.o. twice daily. 4. Lorazepam 1 mg p.o. b.i.d. 5. Wellbutrin 100 mg p.o. b.i.d. 6. Zestoretic 20/25 mg 1 p.o. daily. 7. Lumigan 1 drop O.U. every evening. 8. Cosopt 1 drop O.U. twice daily. 9. Alphagan 1 drop O.U. twice daily. PHYSICAL EXAMINATION VITAL SIGNS: Temperature 98.1, respiratory rate 18, pulse 70, and blood pressure 166/68. GENERAL: This is a morbidly obese male in no acute distress. HEENT: Head is atraumatic and normocephalic. Pupils are equal and round. NECK: Supple. Trachea is midline. No lymphadenopathy, no thyromegaly. Carotid upstrokes are normal. CARDIOVASCULAR: S1 and S2. No murmur, gallop, or rub. Pacemaker placement is noted on left chest wall. LUNGS: Clear to auscultation, diminished in the bases. ABDOMEN: Morbidly obese pannus. Bowel sounds are present. No hepatomegaly. Nontender. EXTREMITIES: Bilateral lower extremity pulses are palpable. No clubbing or cyanosis. The right has a compression stocking noted. Trace edema. NEUROLOGIC: He is awake, alert, and oriented. He follows commands without difficulty and moves all extremities equally. The patient does appear to be somewhat of a poor historian. DIAGNOSTIC STUDIES LABORATORY: Sodium 136, potassium 4, chloride 98, CO2 of 28, BUN 32, creatinine 1.3, and glucose 171. PT-INR 10.9 and 1. Hemoglobin 9, hematocrit 28.8, WBC 10.3, and platelet count 415,000. IMAGING: He currently has a chest x-ray that is pending. CARDIOLOGY: EKG shows an atrial-paced rhythm, rate of 72 beats per minute. Right bundle branch block is present. No acute ischemic changes noted. IMPRESSION 1. Infected lower extremity right leg wound. 2. History of atrial fibrillation/flutter on chronic anticoagulation with Eliquis. 3. History of permanent pacemaker reason possibly related to sick sinus syndrome, patient unsure what device he has. 4. Morbid obesity with a body mass index greater than 50. 5. Hypertension. Unit #: [id number] #: [id number] Patient: MARCO ANTONIO GARCIA JR 6. Diabetes mellitus. 7. Possible obstructive sleep apnea. PLAN We have been consulted to see this patient for preop surgical clearance. The patient has a history of atrial fibrillation/flutter and has been on chronic anticoagulation with Eliquis. This has been discontinued prior to surgical intervention. He denies any complaints of chest pain. There are currently no signs or symptoms of fluid overload, and he appears euvolemic. Will obtain a 2D echocardiogram to assess left ventricular systolic function, repeat EKG in the a.m., and obtain a fasting lipid profile. Will continue his current medications as ordered with the exception of the Eliquis. This case has been discussed with Dr. Woo, and pending the results of the echocardiogram, he is okay for surgical intervention with moderate, but acceptable risk. Will also obtain records from [facility]. Will also ask case packer to see as the patient is reporting some financial issues, as well as a holistic nutritionist evaluation. ADDENDUM After review of records received from [facility], it is noted the patient does have a [employer] dual-chamber device placed on November 29, 2015, per Dr. Arevalo. The reason it was placed was for complete heart block. Dictated by... Kait Knott A.P.R.N. for Jareth Woo M.D. LMW/am TD: 11/25/2016 20:28 JOB #: [id number] Dictated by... Kait Knott A.P.R.N. for Jareth Woo M.D. LMW/am TD: 11/25/2016 21:01 JOB #: [id number] CONSULTATION REPORT Page 1 of 1 X Kait Knott APRN CONSULTATION REPORT
--- NOTE | ~2016-11-25 | CR72 ---
[facility] A Service of [facility] & [facility] RADIOLOGY TEXT RESULTS PATIENT: MARCO ANTONIO GARCIA JR LOCATION: [facility] [id number] : 43 UNIT #: [id number] AGE: [address]: Kevin Peng MD SEX: M ORDER DR: [id number] [facility] [address]. [place], [place] [address] [id number] I MR#: [id number] Acc #: [id number] NAME: MARCO ANTONIO GARCIA JR : 1945 SEX: M STUDY DATE/TIME: 12/09/2016 17:13 UNIT: [facility] ROOM: [facility] STUDY DESCRIPTION: CR Chest Single View Portable Attending Physician: Kevin Peng M.D. Referring Physician: Kevin Peng M.D. Ordering Physician: Kamila Uriostegui A.P.R.N. Primary Care Physician: [facility] MED[facility] IMAGING REPORT This report is preliminary unless electronic signature is present EXAM Chest x-ray portable HISTORY Pacemaker. PICC placement. COMMENT Single frontal portable view of the chest timed 17:13 12/09/2016 is reviewed. Comparison 11/25/2016. The patient has low lung volumes with bilateral lower lung airspace disease, left greater than right, worse when compared to previous. There is mild cardiac silhouette enlargement also probably worse. Concern for worsening volume status as well as worsening aeration on comparison to yesterday's film. There is a left-sided pacer/defibrillator lead position not changed. There is a right upper extremity PICC line terminating distal SVC to mid SVC level. Tip difficult to appreciate. No pneumothorax. IMPRESSION 1. Interval worsening in the appearance of the chest. There is probably worsening aeration with decrease in lung volumes and increase in lower lung airspace disease as well as some mild worsening in volume status with increase in cardiac silhouette size. Please correlate clinically and recommend a follow up film. 2. PICC line terminates mid to distal SVC. Dictated by... Genia Jacob M.D. [facility] A Service of [facility] & [facility] RADIOLOGY TEXT RESULTS PATIENT: MARCO ANTONIO GARCIA JR LOCATION: [place] [address] : [birth year] UNIT #: [id number] AGE: [address]: Kevin Peng MD SEX: M ORDER DR: THIS IS AN ELECTRONICALLY VERIFIED REPORT Genia Jacob M.D. at 12/10/2016 10:40 AM Jose TD: 12/10/2016 06:33 JOB #: [id number] MEDICAL IMAGING REPORT Page 1 of 1 COPY
--- NOTE | ~2016-11-25 | PFT ---
[id number] [facility] [address]. [place], [place] [address] [id number] I MR#: [id number] NAME: MARCO ANTONIO GARCIA JR ROOM: 473 SEX: M STUDY DATE/TIME: 11/26/2016 : 1945 AGE: 71 STUDY DESCRIPTION: Attending Physician: Kevin Peng M.D. Referring Physician: Kevin Peng M.D. Primary Care Physician: Vance Muniz PULMONARY DIAGNOSTIC REPORT EXAM Pulmonary function test. FINDINGS Spirometry is suggestive of a severe obstructive defect. Cannot rule out restrictive defect. FVC is 1.65 liters, 38% of predicted. Flow volume loop suggests a restrictive defect. Please note that spirometry alone cannot rule out a restrictive defect and full PFTs with lung volumes and diffusion capacity if clinically indicated is suggested. Dictated by... Delfino Maldonado M.D. WOL/gz TD: 11/26/2016 11:03 JOB #: [id number] CC: Sina Ramirez M.D. PULMONARY DIAGNOSTIC REPORT Page 1 of 1
--- NOTE | ~2016-11-25 | EKG ---
PATIENT: MARCO ANTONIO GARCIA UNIT #: [id number] Ventricular Rate: 109 BPM Atrial Rate: 115 BPM QRS Duration: 170 ms Q-T Interval: 166 ms QTC Calculation(Bezet): 223 ms Calculated R Hemlock: -97 degrees Calculated T Hemlock: 0 degrees Diagnosis Line: AV dual-paced complexes Diagnosis Line: Abnormal ECG Diagnosis Line: Diagnosis Line: Confirmed by JYOTI ECHAVARRIA MD ([id number]) on Diagnosis Line: 12/03/2016 8:31:10 AM INTERPRETING MD: JERICHO MILES
--- NOTE | ~2016-11-25 | CO ---
Unit #: [id number] #: [id number] Patient: MARCO ANTONIO GARCIA JR [id number] [place] [address] [facility]. [place], [place] [address] [id number] I MR#: [id number] NAME: MARCO ANTONIO GARCIA ROOM: 473 Age: 71 Sex: M Admission Date: 11/25/2016 : 1945 Attending Physician: Kevin Peng M.D. Primary Care Physician: Vance Muniz CONSULTATION REPORT REASON FOR CONSULTATION Followup. DISCUSSION Mr. Odell is a 71-year-old white male, seen in room 473, bed 1 on 12/08/2016 at [facility]. The patient was lying comfortably in bed, moderately obese. The patient denied any thoughts of harming self or others, but still feeling sad, depressed, anxious, feeling of hopelessness and worthlessness. The patient's vital signs; temperature 98.2, heart rate 113, respiratory rate 18, blood pressure 127/42, and oxygen saturation 93%. The patient still gets mad and upset easily, but no major agitation. The patient has multiple health conditions; morbid obesity, right foot infection, diabetes, increased glucose, anemia. The patient also has a chronic kidney disease, stage 3. The patient denied any side effects from medication. Currently, on combination of Celexa 20 mg daily, Wellbutrin 100 mg in the morning and noon, Desyrel 50 mg p.r.n. for sleep. REVIEW OF SYSTEMS Complete review of system is unremarkable. MENTAL STATUS EXAMINATION Vital signs; temperature 98.2, heart rate 113, respiratory rate 18, blood pressure 127/42, oxygen saturation 93%. General appearance; the patient moderately obese, dressed casually, lying comfortably in bed. Attention span and concentration, fair. Speech, regular rate. Oriented in time, place, and person. Mood and affect; sad, dysphoric, flat affect. Thought process, coherent. Thought content, the patient denied any thoughts of harming self or others. Denied any hallucination. Recent and remote memory, fair. Language, fair. Fund of knowledge, fair. Insight and judgment, fair to slightly impaired. DIAGNOSIS Psychiatric: Major depressive disorder, recurrent, severe, F33.2. ASSESSMENT/PLAN 1. Supportive psychotherapy and psychoeducation provided to the patient. 2. Educated about benefits and side effects of medication and course and prognosis of illness. 3. Advised to continue with current medication. If needed, consider further adjustment of medication. Please feel free to call if any question, telephone #[phone]. Unit #: [id number] #: [id number] Patient: RADHA RILEYMARCO ANTONIO RENDON Dictated by... Sina Fields/ambrose TD: 12/08/2016 23:20 JOB #: [id number] CONSULTATION REPORT Page 1 of 1 X Kip Rodriguez MD X CONSULTATION REPORT
--- NOTE | ~2016-11-25 | A ---
[facility] Nutrition Therapy DATE: 12/05/16 Patient: MARCO ANTONIO GARCIA JR Physician: NEELAM Address: [address] [place] [address] Room/Bed: [address] [place] [address], Zip: [place] [address] Admit Date: 11/25/16 Date of : 43 Height: 5 10 Weight: 280 [phone] NUTRITIONAL ASSESSMENT: REASON: LOS 71 yo male admitted for lower extremity venous stasis ulcer PMH: HTN, pacemaker, DM, morbid obesity, PUD, COPD, chronic constipation, Afib, arthritis, chronic wounds Anthropometrics: Ht: 5'10" Wt: 127 kg BMI: 40.2 Labs: Na+ 134 Gluc 223 BUN 33 Ca++ 7.9 HgbA1C 7.7 (11/26) GFR 54.1 Meds: Furosemide, miralax, colace, levaquin, protonix, novolog I/O & Bowel function: 1150/1601, last BM 12/04 Skin Integrity: Surgical site RLE Redness to abdominal folds/ groin Edema: BLE 3+ Diet: Consistent carbohydrate Assessment: Chart reviewed, events noted. Pt seen for LOS nutrition assessment. Pt was previously educated on consistent carbohydrate diet by RD on 11/26. RD spoke with the pt today, and he reports having a good appetite and adequate intake. Pt did not have any further questions regarding his diet. Dx: Impaired glycemic control RT likely poor lifestyle choices, poor controlled DM AEB HgbA1C 7.7, Glucose 223. Intervention: 1. Consistent carbohydrate diet education 2. Add heart healthy to diet order Monitoring, Evaluation and Goals: 1. Labs; improve glucose Recommendations: 1. Add heart healthy restriction to current diet in order to promote gradual weight loss towards a healthy BMI. [facility] Nutrition Therapy DATE: 12/05/16 Patient: MARCO ANTONIO GARCIA JR Physician: NEELAM Address: [address] [place] [address] Room/Bed: [address] [place] [address], Zip: [place] [address] Admit Date: 11/25/16 Date of : 43 Height: 5 10 Weight: 280 [phone] 2. Monitor blood glucose levels. Pt is not at nutritional risk. RD will follow hospital course per protocol. Respectfully, ALONSO MATIAS RD, LD Food and Nutritional Services [facility] cc: client file
[~2016-11-25 10:26] MED LIST: HYDROCHLOROTHIA25 MG PO; LASIX PO; PAXIL PO; PRINIVIL20 M1 PO; TENORMIN50 MG PO
[2016-11-25] MEDS ORDERED: AMARYL2 MG PO (12:55)
[2016-11-25] MEDS ORDERED: ELIQUIS5 MG PO (12:55)
[2016-11-25] MEDS ORDERED: LORAZEPAM1 MG PO (12:55)
[2016-11-25] MEDS ORDERED: ZESTORETIC 20-1 EACH PO (12:56)
[2016-11-25] MEDS ORDERED: WELLBUTRIN100 MG PO (12:56)
[2016-11-25] MEDS ORDERED: LUMIGAN2.5 ML OU (12:57)
[2016-11-25] MEDS ORDERED: COSOPT EYE DROP10 ML OU (12:58)
[2016-11-25] MEDS ORDERED: ALPHAGAN P5 ML OU (12:58)
[2016-11-25 13:25] LABS: BASOPHIL# 0.1 X10e3 (0-0.3); BASOPHIL% 0.8 % (0-2.5); DIFF IND NO; EOSINOPHIL# 0.5 X10e3 (0-0.7); EOSINOPHIL% 4.5 % (0.0-7.0); HEMATOCRIT 28.8 % (38.0-50.0); LYMPHOCYTE# 1.8 X10e3 (1.0-3.5); LYMPHOCYTE% 17.6 % (17.0-45.0); MEAN CELL VOLUME 88.4 FL (83-96); MEAN CORPUSCULAR HEMOGLOBIN 27.7 PG (28-34); MEAN CORPUSCULAR HGB CONC 31.3 g/dL (30-36); MEAN PLATELET VOLUME 7.2 FL (6.5-11.5); MONOCYTE% 9.6 % (3.0-12.0); NEUTROPHIL# 6.9 X10e3 (1.5-7.1); NEUTROPHIL% 67.5 % (40-75); PLATELET COUNT 415 X10e3 (140-420); RED BLOOD COUNT 3.25 X10e (3.90-5.60); RED CELL DISTRIBUTION WIDTH 16.4 % (11.0-15.5); WHITE BLOOD COUNT 10.3 X10e3 (4.0-10.5)
[2016-11-25 13:49] LABS: PROTHROMBIN TIME (PATIENT) 10.9 SECONDS (10.0-11.7)
[2016-11-25 13:53] LABS: ALBUMIN SERUM 3.6 g/dL (3.5-5.0); BILIRUBIN,TOTAL 0.6 mg/dL (0.2-2.0); BUN/CREATININE RATIO 24.61; CALCIUM SERUM 8.6 mg/dL (8.4-10.2); CREATININE SERUM 1.3 mg/dL (0.6-1.4); GLOM FILT RATE Estimated 54.1 mL/min (>60); PROTEIN TOTAL SERUM 7.5 g/dL (6.0-8.3)
[2016-11-25 14:05] LABS: URINE APPEARANCE CLEAR; URINE BILIRUBIN NEG (NEG); URINE BLOOD NEG (NEG); URINE COLOR YELLOW; URINE GLUCOSE NEG (NEG); URINE KETONE NEG (NEG); URINE LEUKOCYTE ESTERASE NEG (NEG); URINE NITRATE NEG (NEG); URINE PH 6.5 (5-8); URINE PROTEIN TRACE (NEG); URINE SPECIFIC GRAVITY 1.019 (1.003-1.035)
[2016-11-25] MEDS ORDERED: DOCUSATE SODIU100 MG PO (15:09)
[2016-11-26 02:32] LABS: BASOPHIL% 0.5 % (0-2.5); EOSINOPHIL# 0.3 X10e3 (0-0.7); EOSINOPHIL% 3.7 % (0.0-7.0); HEMATOCRIT 26.2 % (38.0-50.0); HEMOGLOBIN 8.2 gm/dL (13.0-16.0); LYMPHOCYTE# 1.2 X10e3 (1.0-3.5); LYMPHOCYTE% 12.8 % (17.0-45.0); MEAN CELL VOLUME 88.5 FL (83-96); MEAN CORPUSCULAR HEMOGLOBIN 27.8 PG (28-34); MEAN CORPUSCULAR HGB CONC 31.4 g/dL (30-36); MONOCYTE# 0.9 X10e3 (0-1.0); NEUTROPHIL# 6.8 X10e3 (1.5-7.1); PLATELET COUNT 334 X10e3 (140-420); RED BLOOD COUNT 2.96 X10e (3.90-5.60); RED CELL DISTRIBUTION WIDTH 16.4 % (11.0-15.5); WHITE BLOOD COUNT 9.4 X10e3 (4.0-10.5)
[2016-11-26 02:34] LABS: DIFF IND NO
[2016-11-26 03:25] LABS: BILIRUBIN,TOTAL 0.6 mg/dL (0.2-2.0); BUN/CREATININE RATIO 27.27; CALCIUM SERUM 8.3 mg/dL (8.4-10.2); CREATININE SERUM 1.1 mg/dL (0.6-1.4); GLOM FILT RATE Estimated 66.3 mL/min (>60); POTASSIUM 4.2 mmol/L (3.5-5.1); PROTEIN TOTAL SERUM 6.1 g/dL (6.0-8.3)
[2016-11-27 03:10] LABS: HEMATOCRIT 26.1 % (38.0-50.0); HEMOGLOBIN 8.1 gm/dL (13.0-16.0); MEAN CELL VOLUME 88.7 FL (83-96); MEAN CORPUSCULAR HEMOGLOBIN 27.5 PG (28-34); RED BLOOD COUNT 2.95 X10e (3.90-5.60); RED CELL DISTRIBUTION WIDTH 16.6 % (11.0-15.5); WHITE BLOOD COUNT 8.7 X10e3 (4.0-10.5)
[2016-11-27 03:33] LABS: BUN/CREATININE RATIO 26.66; CALCIUM SERUM 8.3 mg/dL (8.4-10.2); CREATININE SERUM 1.2 mg/dL (0.6-1.4); GLOM FILT RATE Estimated 59.6 mL/min (>60); MAGNESIUM 2.2 mg/dL (1.6-3.0); POTASSIUM 4.2 mmol/L (3.5-5.1); URIC ACID 7.8 mg/dL (2.6-7.2)
[2016-11-28 02:41] LABS: HEMATOCRIT 27.2 % (38.0-50.0); HEMOGLOBIN 8.3 gm/dL (13.0-16.0); MEAN CELL VOLUME 89.5 FL (83-96); MEAN CORPUSCULAR HEMOGLOBIN 27.3 PG (28-34); MEAN CORPUSCULAR HGB CONC 30.5 g/dL (30-36); MEAN PLATELET VOLUME 7.1 FL (6.5-11.5); RED BLOOD COUNT 3.03 X10e (3.90-5.60); RED CELL DISTRIBUTION WIDTH 16.6 % (11.0-15.5); WHITE BLOOD COUNT 7.2 X10e3 (4.0-10.5)
[2016-11-28 03:03] LABS: BILIRUBIN,TOTAL 0.5 mg/dL (0.2-2.0); BUN/CREATININE RATIO 24.16; CALCIUM SERUM 8.2 mg/dL (8.4-10.2); CREATININE SERUM 1.2 mg/dL (0.6-1.4); GLOM FILT RATE Estimated 59.6 mL/min (>60); MAGNESIUM 2.1 mg/dL (1.6-3.0); POTASSIUM 4.4 mmol/L (3.5-5.1); PROTEIN TOTAL SERUM 6.7 g/dL (6.0-8.3)
[2016-11-30 04:23] LABS: BUN/CREATININE RATIO 24.7; CALCIUM SERUM 8.6 mg/dL (8.4-10.2); CREATININE SERUM 1.7 mg/dL (0.6-1.4); GLOM FILT RATE Estimated 39.2 mL/min (>60); POTASSIUM 5.4 mmol/L (3.5-5.1)
[2016-12-01 02:27] LABS: BASOPHIL# 0.1 X10e3 (0-0.3); BASOPHIL% 0.9 % (0-2.5); EOSINOPHIL# 0.3 X10e3 (0-0.7); EOSINOPHIL% 3.2 % (0.0-7.0); HEMATOCRIT 22.8 % (38.0-50.0); HEMOGLOBIN 7.1 gm/dL (13.0-16.0); LYMPHOCYTE# 1.2 X10e3 (1.0-3.5); LYMPHOCYTE% 10.8 % (17.0-45.0); MEAN CELL VOLUME 88.7 FL (83-96); MEAN CORPUSCULAR HEMOGLOBIN 27.7 PG (28-34); MEAN CORPUSCULAR HGB CONC 31.3 g/dL (30-36); MEAN PLATELET VOLUME 7.1 FL (6.5-11.5); MONOCYTE# 1.7 X10e3 (0-1.0); MONOCYTE% 15.5 % (3.0-12.0); NEUTROPHIL# 7.4 X10e3 (1.5-7.1); NEUTROPHIL% 69.6 % (40-75); PLATELET COUNT 321 X10e3 (140-420); RED BLOOD COUNT 2.57 X10e (3.90-5.60); RED CELL DISTRIBUTION WIDTH 16.6 % (11.0-15.5); WHITE BLOOD COUNT 10.7 X10e3 (4.0-10.5)
[2016-12-01 02:28] LABS: DIFF IND YES
[2016-12-01 02:57] LABS: ANISOCYTOSIS MOD; HYPOCHROMIA SL; OVALOCYTES PRESENT; PLATELET ESTIMATE NORMAL (NORMAL)
[2016-12-01 02:58] LABS: ALBUMIN SERUM 2.7 g/dL (3.5-5.0); BILIRUBIN,TOTAL 0.6 mg/dL (0.2-2.0); BUN/CREATININE RATIO 30.58; CALCIUM SERUM 8.3 mg/dL (8.4-10.2); CREATININE SERUM 1.7 mg/dL (0.6-1.4); GLOM FILT RATE Estimated 39.2 mL/min (>60); POTASSIUM 4.8 mmol/L (3.5-5.1); PROTEIN TOTAL SERUM 6.1 g/dL (6.0-8.3)
[2016-12-02 02:59] LABS: BASOPHIL# 0.1 X10e3 (0-0.3); BASOPHIL% 0.9 % (0-2.5); EOSINOPHIL# 0.3 X10e3 (0-0.7); EOSINOPHIL% 3.6 % (0.0-7.0); HEMATOCRIT 22.1 % (38.0-50.0); LYMPHOCYTE# 0.8 X10e3 (1.0-3.5); LYMPHOCYTE% 10.6 % (17.0-45.0); MEAN CELL VOLUME 87.7 FL (83-96); MEAN CORPUSCULAR HEMOGLOBIN 27.6 PG (28-34); MEAN CORPUSCULAR HGB CONC 31.5 g/dL (30-36); MONOCYTE# 1.1 X10e3 (0-1.0); MONOCYTE% 13.9 % (3.0-12.0); NEUTROPHIL# 5.5 X10e3 (1.5-7.1); PLATELET COUNT 308 X10e3 (140-420); RED BLOOD COUNT 2.52 X10e (3.90-5.60); RED CELL DISTRIBUTION WIDTH 17.2 % (11.0-15.5); WHITE BLOOD COUNT 7.8 X10e3 (4.0-10.5)
[2016-12-02 03:01] LABS: DIFF IND NO
[2016-12-02 03:06] LABS: BUN/CREATININE RATIO 28.82; CALCIUM SERUM 8.2 mg/dL (8.4-10.2); CREATININE SERUM 1.7 mg/dL (0.6-1.4); GLOM FILT RATE Estimated 39.2 mL/min (>60); MAGNESIUM 2.1 mg/dL (1.6-3.0); POTASSIUM 4.6 mmol/L (3.5-5.1)
[2016-12-02 17:56] LABS: MB 3.1 ng/ml
[2016-12-03 02:36] LABS: HEMATOCRIT 26.2 % (38.0-50.0); HEMOGLOBIN 8.3 gm/dL (13.0-16.0); MEAN CELL VOLUME 86.2 FL (83-96); MEAN CORPUSCULAR HEMOGLOBIN 27.4 PG (28-34); MEAN CORPUSCULAR HGB CONC 31.8 g/dL (30-36); MEAN PLATELET VOLUME 7.1 FL (6.5-11.5); RED BLOOD COUNT 3.04 X10e (3.90-5.60); RED CELL DISTRIBUTION WIDTH 16.6 % (11.0-15.5); WHITE BLOOD COUNT 7.3 X10e3 (4.0-10.5)
[2016-12-03 03:03] LABS: ALBUMIN SERUM 2.7 g/dL (3.5-5.0); BILIRUBIN,TOTAL 0.8 mg/dL (0.2-2.0); BUN/CREATININE RATIO 29.28; CALCIUM SERUM 8.1 mg/dL (8.4-10.2); CREATININE SERUM 1.4 mg/dL (0.6-1.4); GLOM FILT RATE Estimated 49.5 mL/min (>60); MAGNESIUM 1.9 mg/dL (1.6-3.0); POTASSIUM 4.4 mmol/L (3.5-5.1); PROTEIN TOTAL SERUM 6.2 g/dL (6.0-8.3)
[2016-12-04 03:26] LABS: HEMATOCRIT 27.2 % (38.0-50.0); HEMOGLOBIN 8.5 gm/dL (13.0-16.0); MEAN CORPUSCULAR HEMOGLOBIN 27.2 PG (28-34); MEAN CORPUSCULAR HGB CONC 31.3 g/dL (30-36); RED BLOOD COUNT 3.13 X10e (3.90-5.60); WHITE BLOOD COUNT 10.5 X10e3 (4.0-10.5)
[2016-12-04 03:46] LABS: ALBUMIN SERUM 2.8 g/dL (3.5-5.0); BILIRUBIN,TOTAL 0.9 mg/dL (0.2-2.0); CALCIUM SERUM 8.3 mg/dL (8.4-10.2); CREATININE SERUM 1.4 mg/dL (0.6-1.4); GLOM FILT RATE Estimated 49.5 mL/min (>60); MAGNESIUM 1.9 mg/dL (1.6-3.0); PHOSPHOROUS 3.6 mg/dL (2.5-4.6); POTASSIUM 4.6 mmol/L (3.5-5.1); PROTEIN TOTAL SERUM 6.4 g/dL (6.0-8.3)
[2016-12-05 03:31] LABS: HEMATOCRIT 25.8 % (38.0-50.0); MEAN CELL VOLUME 86.9 FL (83-96); MEAN CORPUSCULAR HEMOGLOBIN 26.9 PG (28-34); MEAN PLATELET VOLUME 7.3 FL (6.5-11.5); RED BLOOD COUNT 2.97 X10e (3.90-5.60); RED CELL DISTRIBUTION WIDTH 16.9 % (11.0-15.5); WHITE BLOOD COUNT 9.9 X10e3 (4.0-10.5)
[2016-12-05 03:54] LABS: BUN/CREATININE RATIO 25.38; CALCIUM SERUM 7.9 mg/dL (8.4-10.2); CREATININE SERUM 1.3 mg/dL (0.6-1.4); GLOM FILT RATE Estimated 54.1 mL/min (>60); MAGNESIUM 1.8 mg/dL (1.6-3.0)
[2016-12-05 05:13] LABS: IRON SERUM 21 ug/dL (45-182); TOTAL IRON BINDING CAPACITY 387 ug/dL (252-460); TRANSFERRIN 277 mg/dL (180-329); TRANSFERRIN SATURATION 5 % (20-50)
[2016-12-06 07:36] LABS: HEMATOCRIT 23.7 % (38.0-50.0); HEMOGLOBIN 7.5 gm/dL (13.0-16.0); MEAN CELL VOLUME 86.3 FL (83-96); MEAN CORPUSCULAR HEMOGLOBIN 27.4 PG (28-34); MEAN CORPUSCULAR HGB CONC 31.7 g/dL (30-36); MEAN PLATELET VOLUME 7.1 FL (6.5-11.5); RED BLOOD COUNT 2.74 X10e (3.90-5.60); RED CELL DISTRIBUTION WIDTH 16.7 % (11.0-15.5); WHITE BLOOD COUNT 8.9 X10e3 (4.0-10.5)
[2016-12-06 08:38] LABS: CALCIUM SERUM 7.9 mg/dL (8.4-10.2); CREATININE SERUM 1.2 mg/dL (0.6-1.4); GLOM FILT RATE Estimated 59.6 mL/min (>60); MAGNESIUM 1.7 mg/dL (1.6-3.0); PHOSPHOROUS 3.1 mg/dL (2.5-4.6); POTASSIUM 4.3 mmol/L (3.5-5.1)
[2016-12-07 03:49] LABS: BASOPHIL# 0.1 X10e3 (0-0.3); EOSINOPHIL# 0.6 X10e3 (0-0.7); EOSINOPHIL% 6.2 % (0.0-7.0); HEMATOCRIT 24.9 % (38.0-50.0); HEMOGLOBIN 7.8 gm/dL (13.0-16.0); LYMPHOCYTE# 0.9 X10e3 (1.0-3.5); LYMPHOCYTE% 9.9 % (17.0-45.0); MEAN CELL VOLUME 86.3 FL (83-96); MEAN CORPUSCULAR HEMOGLOBIN 26.9 PG (28-34); MEAN CORPUSCULAR HGB CONC 31.2 g/dL (30-36); MEAN PLATELET VOLUME 7.3 FL (6.5-11.5); MONOCYTE# 1.2 X10e3 (0-1.0); MONOCYTE% 12.7 % (3.0-12.0); NEUTROPHIL# 6.7 X10e3 (1.5-7.1); NEUTROPHIL% 70.2 % (40-75); PLATELET COUNT 386 X10e3 (140-420); RED BLOOD COUNT 2.88 X10e (3.90-5.60); RED CELL DISTRIBUTION WIDTH 16.9 % (11.0-15.5); WHITE BLOOD COUNT 9.5 X10e3 (4.0-10.5)
[2016-12-07 03:50] LABS: DIFF IND YES
[2016-12-07 03:56] LABS: BUN/CREATININE RATIO 19.28; CALCIUM SERUM 7.9 mg/dL (8.4-10.2); CREATININE SERUM 1.4 mg/dL (0.6-1.4); GLOM FILT RATE Estimated 49.5 mL/min (>60)
[2016-12-07 04:20] LABS: HYPOCHROMIA MOD; PLATELET ESTIMATE NORMAL (NORMAL)
[2016-12-08 04:04] LABS: BASOPHIL# 0.1 X10e3 (0-0.3); BASOPHIL% 0.8 % (0-2.5); EOSINOPHIL# 0.5 X10e3 (0-0.7); EOSINOPHIL% 5.5 % (0.0-7.0); HEMATOCRIT 24.4 % (38.0-50.0); HEMOGLOBIN 7.5 gm/dL (13.0-16.0); LYMPHOCYTE# 0.7 X10e3 (1.0-3.5); MEAN CELL VOLUME 86.7 FL (83-96); MEAN CORPUSCULAR HEMOGLOBIN 26.7 PG (28-34); MEAN CORPUSCULAR HGB CONC 30.8 g/dL (30-36); MEAN PLATELET VOLUME 6.8 FL (6.5-11.5); MONOCYTE% 11.4 % (3.0-12.0); NEUTROPHIL# 6.4 X10e3 (1.5-7.1); NEUTROPHIL% 74.3 % (40-75); PLATELET COUNT 383 X10e3 (140-420); RED BLOOD COUNT 2.82 X10e (3.90-5.60); RED CELL DISTRIBUTION WIDTH 16.8 % (11.0-15.5); WHITE BLOOD COUNT 8.6 X10e3 (4.0-10.5)
[2016-12-08 04:05] LABS: DIFF IND NO
[2016-12-08 04:34] LABS: BUN/CREATININE RATIO 17.33; CALCIUM SERUM 8.2 mg/dL (8.4-10.2); CREATININE SERUM 1.5 mg/dL (0.6-1.4); GLOM FILT RATE Estimated 45.6 mL/min (>60); MAGNESIUM 1.8 mg/dL (1.6-3.0); POTASSIUM 4.1 mmol/L (3.5-5.1)
[2016-12-09 04:31] LABS: BASOPHIL# 0.1 X10e3 (0-0.3); BASOPHIL% 0.8 % (0-2.5); EOSINOPHIL# 0.3 X10e3 (0-0.7); EOSINOPHIL% 2.7 % (0.0-7.0); HEMATOCRIT 22.5 % (38.0-50.0); HEMOGLOBIN 7.3 gm/dL (13.0-16.0); LYMPHOCYTE# 0.7 X10e3 (1.0-3.5); LYMPHOCYTE% 6.6 % (17.0-45.0); MEAN CELL VOLUME 86.3 FL (83-96); MEAN CORPUSCULAR HGB CONC 32.5 g/dL (30-36); MEAN PLATELET VOLUME 6.9 FL (6.5-11.5); MONOCYTE# 1.2 X10e3 (0-1.0); MONOCYTE% 11.5 % (3.0-12.0); NEUTROPHIL# 8.5 X10e3 (1.5-7.1); NEUTROPHIL% 78.4 % (40-75); PLATELET COUNT 381 X10e3 (140-420); RED BLOOD COUNT 2.61 X10e (3.90-5.60); RED CELL DISTRIBUTION WIDTH 17.1 % (11.0-15.5); WHITE BLOOD COUNT 10.8 X10e3 (4.0-10.5)
[2016-12-09 04:33] LABS: DIFF IND NO
[2016-12-09 04:50] LABS: BUN/CREATININE RATIO 18.57; CALCIUM SERUM 7.9 mg/dL (8.4-10.2); CREATININE SERUM 1.4 mg/dL (0.6-1.4); GLOM FILT RATE Estimated 49.5 mL/min (>60); MAGNESIUM 1.7 mg/dL (1.6-3.0); POTASSIUM 3.6 mmol/L (3.5-5.1)
[2016-12-24] MEDS ORDERED: PERCOCET 7.5-31 EACH PO (16:17)
[2016-12-24] MEDS ORDERED: MULTI VITAMIN1 EACH PO (16:18)
[2016-12-24] MEDS ORDERED: AMARYL1 MG PO (16:18)
[2016-12-24] MEDS ORDERED: ZESTORETIC 20-1 EAC2 PO (16:19)
[2016-12-24] MEDS ORDERED: CELEXA20 M1 PO (16:20)
[2016-12-24] MEDS ORDERED: DOC-Q-LACE100 MG PO (16:20)
[2016-12-24] MEDS ORDERED: K-DUR20 ME1 PO (16:20)
[2016-12-24] MEDS ORDERED: SENEXON-S TABL1 EACH PO (16:22)
[2016-12-24] MEDS ORDERED: ALPHAGAN P5 ML OU (16:24)
[2016-12-24] MEDS ORDERED: FERRO-TIME325 MG PO (16:24)
[2016-12-24] MEDS ORDERED: JUVEN PACKET1 EACH PO (16:24)
[2016-12-24] MEDS ORDERED: ELIQUIS5 MG PO (16:25)
[2016-12-24] MEDS ORDERED: WELLBUTRIN100 MG PO (16:25)
[2016-12-24] MEDS ORDERED: LORAZEPAM1 MG PO (16:26)
[2016-12-24] MEDS ORDERED: DORZOLAMIDE-TIM10 ML OU (16:26)
[2016-12-24] MEDS ORDERED: LUMIGAN2.5 ML OD (16:27)
[2016-12-24] MEDS ORDERED: MILK OF MAGNESIA PO (16:27)
[2016-12-24] MEDS ORDERED: TRAZODONE PO (16:28)
[2016-12-24] MEDS ORDERED: NOVOLOG100 U/ML (16:31)
[2016-12-24] MEDS ORDERED: MAGIC BUTT CREAM TD (16:31)
[2016-12-24] MEDS ORDERED: DIPHENYDRAMINE25 MG PO (16:32)
[2016-12-26] MEDS ORDERED: MAG-OX 400400 M1 PO (11:08)
== END 2016-12-09 21:30 | DRG 264 ==
LOC: C4C 10:26
PROVIDERS: Family Medicine; Internal Medicine Nephrology; Nurse Practitioner; Surgery
PROC: B24BZZZ Ultrasonography of Heart with Aorta (ICD-10-PCS; 2016-11-26)
PROC: 0JBN0ZZ Excision of Right Lower Leg Subcutaneous Tissue and Fascia, Open Approach (ICD-10-PCS; principal; 2016-11-27 14:30)
PROC: 0KBS0ZZ Excision of Right Lower Leg Muscle, Open Approach (ICD-10-PCS; 2016-12-02)
PROC: 30233N1 Transfusion of Nonautologous Red Blood Cells into Peripheral Vein, Percutaneous Approach (ICD-10-PCS; 2016-12-02)
PROC: 02HV33Z Insertion of Infusion Device into Superior Vena Cava, Percutaneous Approach (ICD-10-PCS; 2016-12-09)
PROC: 4A02X4A Measurement of Cardiac Electrical Activity, Guidance, External Approach (ICD-10-PCS; 2016-12-09)
DX: I83.018 Varicose veins of right lower extremity with ulcer other part of lower leg (principal); N17.9 Acute kidney failure, unspecified; E11.22 Type 2 diabetes mellitus with diabetic chronic kidney disease; M34.9 Systemic sclerosis, unspecified; F33.2 Major depressive disorder, recurrent severe without psychotic features; Z68.41 Body mass index [BMI] 40.0-44.9, adult; N18.3 Chronic kidney disease, stage 3 (moderate); I48.0 Paroxysmal atrial fibrillation; D62 Acute posthemorrhagic anemia; I12.9 Hypertensive chronic kidney disease with stage 1 through stage 4 chronic kidney disease, or unspecified chronic kidney disease; E66.01 Morbid (severe) obesity due to excess calories; Z79.01 Long term (current) use of anticoagulants; M19.90 Unspecified osteoarthritis, unspecified site; J44.9 Chronic obstructive pulmonary disease, unspecified; Z88.0 Allergy status to penicillin; Z95.0 Presence of cardiac pacemaker; J98.4 Other disorders of lung; G47.33 Obstructive sleep apnea (adult) (pediatric); F41.1 Generalized anxiety disorder; G31.84 Mild cognitive impairment of uncertain or unknown etiology; Z87.891 Personal history of nicotine dependence; L30.8 Other specified dermatitis; M1A.0421 Idiopathic chronic gout, left hand, with tophus (tophi); E87.6 Hypokalemia; G47.00 Insomnia, unspecified
CPT/HCPCS: 71010; 71020; 76770; 80048; 80053; 80061; 80202; 81003; 82150; 82550; 82553; 82570; 82607; 82728; 82947; 83036; 83540; 83550; 83735; 84100; 84156; 84443; 84484; 84550; 85025; 85027; 85610; 86334; 86850; 86900; 86901; 86923; 93005; 93306; 93922; 93970; 94010; 94640; 94664; 94760; 97110; 97116; 97163; 97167; 97530; 97535; C9113; G8978-GP; G8979-GP; G8987-GO; G8988-GO; G8989-GO; J1170; J1650; J1815; J1940; J1956; J2020; J2250; J2370; J2405; J2916; J3010; J3370; J3475; P9016

== ENCOUNTER → 2016-12-26 | Day surgery (SDC) | payer MEDICARE ==
[~2016-12-26] MED LIST changes: +ALPHAGAN P5 ML OU; +AMARYL1 MG PO; +AMARYL2 MG PO; +CELEXA20 M1 PO; +COSOPT EYE DROP10 ML OU; +DIPHENYDRAMINE25 MG PO; +DOC-Q-LACE100 MG PO; +DOCUSATE SODIU100 MG PO; +DORZOLAMIDE-TIM10 ML OU; +ELIQUIS5 MG PO; +FERRO-TIME325 MG PO; +JUVEN PACKET1 EACH PO; +K-DUR20 ME1 PO; +LORAZEPAM1 MG PO; +LUMIGAN2.5 ML OD; +LUMIGAN2.5 ML OU; +MAG-OX 400400 M1 PO; +MAGIC BUTT CREAM TD; +MILK OF MAGNESIA PO; +MULTI VITAMIN1 EACH PO; +NOVOLOG100 U/ML; +PERCOCET 7.5-31 EACH PO; +SENEXON-S TABL1 EACH PO; +TRAZODONE PO; +WELLBUTRIN100 MG PO; +ZESTORETIC 20-1 EAC2 PO; +ZESTORETIC 20-1 EACH PO
--- NOTE | ~2016-12-26 | OR ---
Unit #: [id number] #: [id number] Patient: MARCO ANTONIO GARCIA JR [id number] [address] [place], [place] [address] [id number] MR#: [id number] NAME: MARCO ANTONIO GARCIA JR ROOM: Date of Procedure: 12/26/2016 Admission Date: 12/26/2016 Surgeon: Pankaj Mckee Jr., M.D. : 1945 Attending Physician: Pankaj Mckee Jr., M.D. Referring Physician: Pankaj Mckee Jr., M.D. OPERATIVE REPORT INDICATIONS FOR PROCEDURE The patient is a 71-year-old white male, who has had problems with a nonhealing wound for at least 8 years of the right lower leg. He also has some chronic venous stasis, but his wound has been debrided several times and he is being followed by Dr. ePng. It was felt that he needed to be re-debrided down to again viable tissue that would granulate. He is brought in at this time for this procedure at his request. He understands the procedure including the risks, including that of possibility of loss of limb eventually or infections and decreased function of the leg and consents. PREOPERATIVE DIAGNOSIS Chronic nonhealing wound to the right lower leg. POSTOPERATIVE DIAGNOSIS Chronic nonhealing wound to the right lower leg, noting chronic necrotic tissue with poor granulation. The wound itself was almost circumferential. ANESTHESIA General with LMA. PROCEDURE PERFORMED Sharp excisional debridement of wound of the right lower leg using dermatome as well as #10 blade scalpel down to the fascia of the muscle. DESCRIPTION OF PROCEDURE The patient was positioned in supine position. After being anesthetized, he was prepped and draped in routine fashion for debridement of the wound of his right lower leg. The Елена dermatome was used to debride the superficial parts of the wound that were hypertrophic using full-thickness opening of the dermatome itself. This was done in different areas. There was some exposed tendon to the gastrocnemius posteriorly, which was removed with a #10 blade scalpel down to the fascia that appeared to be viable beneath it. Additional fragments of tissue were removed circumferentially from the entire wound with #10 blade scalpel. After the wound was completely clean, scraped, and all poor granulation and nonhealing tissue was removed, it was irrigated, and then Silvadene cream was used on the wound along with saline moist dry dressings for dressings. Sterile compress dressing was applied externally. Estimated blood loss less than 100 mL. The patient received less than 2000 mL of crystalloid solution during the procedure. Sponges and instruments counts were Unit #: [id number] #: [id number] Patient: MARCO ANTONIO GARCIA JR correct x3. No drains were used. No complications. The patient was taken to the recovery room with stable vital signs in satisfactory condition. Dictated by... Paknaj Mckee Jr., MJuventino. NAN/ambrose TD: 12/31/2016 09:58 JOB #: [id number] CC: Bret Muniz Np OPERATIVE REPORT Page 1 of 1 X Pankaj Mckee MD PROCEDURE OPERATIVE NOTE
[2016-12-26 11:20] LABS: BASOPHIL# 0.1 X10e3 (0-0.3); BASOPHIL% 0.9 % (0-2.5); EOSINOPHIL# 0.4 X10e3 (0-0.7); EOSINOPHIL% 6.1 % (0.0-7.0); HEMATOCRIT 29.9 % (38.0-50.0); HEMOGLOBIN 9.3 gm/dL (13.0-16.0); LYMPHOCYTE# 0.8 X10e3 (1.0-3.5); LYMPHOCYTE% 13.2 % (17.0-45.0); MEAN CELL VOLUME 88.8 FL (83-96); MEAN CORPUSCULAR HEMOGLOBIN 27.6 PG (28-34); MEAN CORPUSCULAR HGB CONC 31.1 g/dL (30-36); MEAN PLATELET VOLUME 6.9 FL (6.5-11.5); MONOCYTE# 0.8 X10e3 (0-1.0); MONOCYTE% 12.5 % (3.0-12.0); NEUTROPHIL# 4.3 X10e3 (1.5-7.1); NEUTROPHIL% 67.3 % (40-75); PLATELET COUNT 355 X10e3 (140-420); RED BLOOD COUNT 3.37 X10e (3.90-5.60); WHITE BLOOD COUNT 6.4 X10e3 (4.0-10.5)
[2016-12-26 11:22] LABS: DIFF IND NO
== END | disposition home or self-care (01) ==
LOC: CSUR 10:10
PROVIDERS: Surgery
DX: T81.89XA Other complications of procedures, not elsewhere classified, initial encounter (principal); E11.52 Type 2 diabetes mellitus with diabetic peripheral angiopathy with gangrene; L92.9 Granulomatous disorder of the skin and subcutaneous tissue, unspecified; I12.9 Hypertensive chronic kidney disease with stage 1 through stage 4 chronic kidney disease, or unspecified chronic kidney disease; E11.22 Type 2 diabetes mellitus with diabetic chronic kidney disease; N18.3 Chronic kidney disease, stage 3 (moderate); M17.0 Bilateral primary osteoarthritis of knee; J44.9 Chronic obstructive pulmonary disease, unspecified; E66.01 Morbid (severe) obesity due to excess calories; I48.91 Unspecified atrial fibrillation; D64.9 Anemia, unspecified; Z68.41 Body mass index [BMI] 40.0-44.9, adult; Z87.891 Personal history of nicotine dependence; Z88.0 Allergy status to penicillin; Z79.01 Long term (current) use of anticoagulants; Z79.899 Other long term (current) drug therapy; Z95.0 Presence of cardiac pacemaker; Z98.41 Cataract extraction status, right eye; Z98.42 Cataract extraction status, left eye; Z98.890 Other specified postprocedural states; Y83.8 Other surgical procedures as the cause of abnormal reaction of the patient, or of later complication, without mention of misadventure at the time of the procedure
CPT/HCPCS: 82947; 85025; J2370; J2405; J3010; J3370